=== PATIENT | male | born 1990 | race Caucasian/White ===

== ENCOUNTER 2017-05-23 23:43 | Emergency (ER) | payer MEDICARE, OTHER ==
[~2017-05-23] VITALS: Ht 180.3 cm; Wt 70.0 kg
[~2017-05-23 23:43] MED LIST: FLUO10TA PO; LEVO100T4 PO; VITA200017 PO; ZIPR20 PO
--- NOTE | 2017-05-24 00:07 | PD ---
HPI Chief Complaint: psychiatric evaluation Time Seen by Provider: 23:59 Travel History International Travel<30 days: No Contact w/Intl Traveler<30days: No History of Present Illness HPI Patient comes in under Carr act by police for allegedly threatening his roommate. Patient denies this. Patient denies any homicidal or suicidal ideations. Patient states that his roommate along with his roommates girlfriend were being loud and he was trying to sleep. Patient states he is supposed to be on medications for mood disorder but has been out of them for approximately a week. Patient is uncertain of the medications. Patient denies any medical complaints or concerns this time. Denies any chest pain, shortness of breath, fevers, abdominal pain, or headaches. PFSH Past Medical History Hx Anticoagulant Therapy: No Cardiovascular Problems: No Chemotherapy: No Cerebrovascular Accident: No Diabetes: No Diminished Hearing: No Respiratory: No Immunizations Current: No Migraines: No Social History Alcohol Use: No Tobacco Use: No Substance Use: No Allergies-Medications (Allergen,Severity, Reaction): Coded Allergies: No Known Allergies (Verified , 01/28/16) Reported Meds & Prescriptions Reported Meds & Active Scripts Active Reported Vitamin D3 (Cholecalciferol) 2,000 Unit Tab 32,000 Unit PO DAILY Fluoxetine (Fluoxetine HCl) 10 Mg Tab 10 Mg PO DAILY Levothyroxine 100 mcg (Levothyroxine Sodium) 100 Mcg Tab Unknown Dose PO DAILY Geodon (Ziprasidone) 20 Mg Cap 20 Mg PO DAILY Review of Systems Except as stated in HPI: all other systems reviewed are Neg Physical Exam Narrative GENERAL: Well-developed, well nourished, in no acute distress, and non-ill appearing. SKIN: Focused skin assessment warm and dry. HEAD: Atraumatic. Normocephalic. EYES: Pupils equal and round. EOMI. No scleral icterus. No injection or drainage. ENT: No nasal bleeding or discharge. Mucous membranes pink and moist. NECK: Trachea midline. Supple. No nuclear rigidity. CARDIOVASCULAR: Regular rate and rhythm. No murmur appreciated. RESPIRATORY: No accessory muscle use. No respiratory distress. Clear to auscultation. Breath sounds equal bilaterally. MUSCULOSKELETAL: No obvious deformities. No clubbing. No cyanosis. No edema. Full range of motion. NEUROLOGICAL: Awake and alert. No obvious cranial nerve deficits. Motor grossly within normal limits. Normal speech. PSYCHIATRIC: Appropriate mood and affect; insight and judgment normal. Data Data Orders Orders Complete Blood Count With Diff (05/24/17 00:00) Comprehensive Metabolic Panel (05/24/17 00:00) Psych Screen (05/24/17 00:00) Drug Screen, Random Urine (05/24/17 00:00) Alcohol (Ethanol) (05/24/17 00:00) Salicylates (Aspirin) (05/24/17 00:00) Tylenol (Acetaminophen) (05/24/17 00:00) Labs Laboratory Tests Test 05/24/17 00:03 White Blood Count 8.0 TH/MM3 Red Blood Count 4.72 MIL/MM3 Hemoglobin 14.8 GM/DL Hematocrit 42.0 % Mean Corpuscular Volume 89.1 FL Mean Corpuscular Hemoglobin 31.5 PG Mean Corpuscular Hemoglobin Concent 35.3 % Red Cell Distribution Width 12.2 % Platelet Count 192 TH/MM3 Mean Platelet Volume 9.1 FL Neutrophils (%) (Auto) 45.4 % Lymphocytes (%) (Auto) 40.8 % Monocytes (%) (Auto) 12.1 % Eosinophils (%) (Auto) 1.3 % Basophils (%) (Auto) 0.4 % Neutrophils # (Auto) 3.6 TH/MM3 Lymphocytes # (Auto) 3.3 TH/MM3 Monocytes # (Auto) 1.0 TH/MM3 Eosinophils # (Auto) 0.1 TH/MM3 Basophils # (Auto) 0.0 TH/MM3 CBC Comment DIFF FINAL Differential Comment Blood Urea Nitrogen 12 MG/DL Creatinine 0.58 MG/DL Random Glucose 111 MG/DL Total Protein 7.5 GM/DL Albumin 4.2 GM/DL Calcium Level 8.7 MG/DL Alkaline Phosphatase 80 U/L Aspartate Amino Transf (AST/SGOT) 21 U/L Alanine Aminotransferase (ALT/SGPT) 24 U/L Total Bilirubin 0.2 MG/DL Sodium Level 139 MEQ/L Potassium Level 4.0 MEQ/L Chloride Level 105 MEQ/L Carbon Dioxide Level 26.9 MEQ/L Anion Gap 7 MEQ/L Estimat Glomerular Filtration Rate 169 ML/MIN Salicylates Level LESS THAN 1.7 MG/DL Acetaminophen Level LESS THAN 2.0 MCG/ML Ethyl Alcohol Level LESS THAN 3 MG/DL MDM Medical Decision Making Medical Screen Exam Complete: Yes Emergency Medical Condition: Yes Differential Diagnosis Homicidal, suicidal, mood disorder, adjustment disorder, metabolic disturbance, substance induced mood disorder, alcohol Narrative Course Patient was seen and examined. Labs were obtained and reviewed with the exception urine drug screen has not been collected yet. Patient medically cleared for further treatment and evaluation by psych. Final disposition per psych. Diagnosis Primary Impression: Medical clearance for psychiatric admission Condition: Tulio Owen May 24, 2017 00:07
[2017-05-24 00:17] LABS: AUTOMATED NEUTROPHIL # 3.6 TH/MM3 (1.8-7.7); BASOPHIL % 0.4 % (0.0-2.0); EOSINOPHIL # 0.1 TH/MM3 (0-0.4); EOSINOPHIL % 1.3 % (0.0-4.0); HEMO FLAGS DIFF FINAL; LYMPH % 40.8 % (9.0-44.0); LYMPHOCYTE # 3.3 TH/MM3 (1.0-4.8); MEAN CELL VOLUME 89.1 FL (80.0-100.0); MEAN CORPUSCULAR HEMOGLOBIN 31.5 PG (27.0-34.0); MEAN CORPUSCULAR HGB CONC 35.3 % (32.0-36.0); MONO % 12.1 % (0.0-8.0); NEUT % 45.4 % (16.0-70.0); PLATELET COUNT 192 TH/MM3 (150-450); RED BLOOD COUNT 4.72 MIL/MM3 (4.50-5.90); RED CELL DISTRIBUTION WIDTH 12.2 % (11.6-17.2)
[2017-05-24 00:32] LABS: ANION GAP 7 MEQ/L (5-15)
[2017-05-24 00:34] LABS: ACETAMINOPHEN LESS THAN 2.0 MCG/ML (10.0-30.0); ALCOHOL LESS THAN 3 MG/DL (0-5); ALKALINE PHOSPHATASE 80 U/L (45-117); ALT (GPT) 24 U/L (12-78); AST (GOT) 21 U/L (15-37); BICARBONATE 26.9 MEQ/L (21.0-32.0); BLOOD UREA NITROGEN 12 MG/DL (7-18); CHLORIDE 105 MEQ/L (98-107); GLOMERULAR FILTRATION RATE 169 ML/MIN (>89); SODIUM (NA) 139 MEQ/L (136-145); TOTAL BILIRUBIN ADULT 0.2 MG/DL (0.2-1.0)
[2017-05-24 02:20] VITALS: BP 121/56; PULSE 57; RESP 16; TEMP 98.3; O2SAT 100
[2017-05-24 06:15] VITALS: BP_SYST 131; BP_SYST 147; BP_DIAS 60; BP_DIAS 85; PULSE 62; PULSE 80; RESP 16; TEMP 97.3; TEMP 97.8; O2SAT 99
--- NOTE | 2017-05-24 09:53 | MB ---
cc: JAKE WOO DATE OF CONSULTATION: 05/24/2017 PHYSICIAN REQUESTING CONSULTATION: Emergency department physician. REASON FOR CONSULTATION: Carr ACT HISTORY OF PRESENT ILLNESS Mr. Short is a 26-year-old male with a chart history of attention deficit hyperactivity disorder as well as oppositional defiant disorder and mild mental retardation who presents under a Carr ACT by [place] [employer] alleging that the patient was making homicidal threats towards a roommate. Reviewing the electronic medical record, I note the patient was admitted most recently to the child psychiatric unit in [address] Castañeda [facility]. The patient seen and examined. Chart reviewed. Case discussed with nursing staff. There has been no evidence of any behavioral disturbance while the patient has been under observation in the J pod. There has been no evidence of suicidality or homicidality. I noted the emergency department provider's reported that the patient denied the allegations in the Carr ACT. He continues to deny them to me now. He says that he got into an argument with his roommate because roommate and roommate's girlfriend were being too loud and the roommate called the police in retribution and made up the allegations in the Carr ACT. The patient adamantly denies any suicidal or homicidal ideation, intent or plan on direct questioning and contracts for safety. In particular he denies any desired to kill or injure his roommate or roommates girlfriend. He understands that the sort of conduct would be illegal and immoral and result in legal sanction. He denies any issues with mood and I can elicit no depressive or hypomanic / manic symptoms. He denies any audiovisual hallucinations and I can elicit no delusional beliefs. No reported anxiety. The remainder of the psychiatric ROS is negative. The patient is calm and pleasant on exam. He has no physical complaints. PAST PSYCHIATRIC HISTORY The patient denies a history of psychiatric diagnosis but follows with Dr. Salazar. He does say that Dr. Salazar prescribes the medications and admits that he has been out of them for about the last week or so. He denies any history of psychiatric admissions in adulthood. He denies any history of suicide attempts. He denies any history of violent behavior. FAMILY HISTORY The patient denies family history of mental illness. CHEMICAL DEPENDENCY HISTORY: The patient denies any abuse of drugs or alcohol. SOCIAL HISTORY The patient reports that he lives and supported living. He is high school educated and was in special education classes. He notes that he is looking for work. He denies any history. Denies any legal history. Denies any he is in a long-term relationship but has no children. He denies any access to guns or firearms. PAST MEDICAL HISTORY See electronic medical record. REVIEW OF SYSTEMS Accept as noted in HPI, this is negative. PHYSICAL EXAMINATION VITAL SIGNS: Temperature 97.3, pulse 62, respirations 16, blood pressure 131/60, pulse oximetry 99% on room air. The physical examination was completed by the Emergency department provider. On my examination today, the patient appears to be in no acute physical distress. No motor abnormalities noted. LABORATORY Reviewed: CBC is unremarkable. CMP is unremarkable. Toxicology is negative. Alcohol level undetectable. Urinalysis results reviewed. MENTAL STATUS EXAM The patient is in hospital gown. He is fairly well per he is well-groomed. He is awake and alert and oriented x3. No abnormal motor movements noted. Speech is within normal limits for rate, tone and volume. Language and fund of knowledge seem reduced for age. Mood is fair and affect is full and reactive that the little bit childlike. Thought process linear. No loosening of associations. No delusional material elicited. Denies audiovisual hallucinations. Denies suicidal or homicidal ideation, intent or plan on direct questioning. Contracts for safety. Insight and judgment are perhaps fair. ASSESSMENT/PLAN 1. Intellectual disability, F 79 This is a 26-year-old male with psychiatric history as detailed above who presents under a Carr ACT. The patient has been calm and cooperative in the emergency department with no evidence of any sort of violence or behavioral disturbance. He denies the allegations in the Carr ACT. Nursing staff has endeavored to obtain collateral from the patient's payee as well as from other sources but has been unable to obtain any further information. Based on my evaluation, the only active psychiatric diagnosis for this patient that I can ascertain is intellectual disability. Since intellectual disability is specifically excluded from the Carr ACT definition of mental illness, the patient does not meet the Carr ACT criteria. Carr ACT therefore lifted. The patient is denying suicidal or homicidal ideation. He appears to be attending to his basic needs. Since he does have some degree of intellectual disability. We will need to ensure that a safe discharge plan is in place before he leaves the emergency department. I have therefore consulted the immigration case worker to arrange for this. The patient is also to follow up with psychiatric patient psychiatric providers. I have counseled the patient regarding warning signs for need to return to the psychiatric emergency room as part of a general safety plan. Thank you very much for this consultation. Jake Bullock /8:11 AM /9:49 AM KIRIT
--- NOTE | 2017-05-24 12:56 | PD ---
Physical Exam Date Seen by Provider: May 24, 2017 Time Seen by Provider: 12:56 Narrative 26-year-old male patient cleared from our facility medically and psychiatrically. I was asked to disposition the patient. Data Data Last Documented VS Vital Signs Date Time Temp Pulse Resp B/P (MAP) Pulse Ox O2 Delivery O2 Flow Rate FiO2 05/24/17 06:15 97.3 62 16 131/60 (83) 99 Room Air Orders Orders Complete Blood Count With Diff (05/24/17 00:00) Comprehensive Metabolic Panel (05/24/17 00:00) Psych Screen (05/24/17 00:00) Drug Screen, Random Urine (05/24/17 00:00) Alcohol (Ethanol) (05/24/17 00:00) Salicylates (Aspirin) (05/24/17 00:00) Tylenol (Acetaminophen) (05/24/17 00:00) Diet Regular Basic (05/24/17 Breakfast) Case Management Consult (05/24/17 ) Ed Discharge Order (05/24/17 12:56) Labs Laboratory Tests Test 05/24/17 00:03 05/24/17 06:15 White Blood Count 8.0 TH/MM3 Red Blood Count 4.72 MIL/MM3 Hemoglobin 14.8 GM/DL Hematocrit 42.0 % Mean Corpuscular Volume 89.1 FL Mean Corpuscular Hemoglobin 31.5 PG Mean Corpuscular Hemoglobin Concent 35.3 % Red Cell Distribution Width 12.2 % Platelet Count 192 TH/MM3 Mean Platelet Volume 9.1 FL Neutrophils (%) (Auto) 45.4 % Lymphocytes (%) (Auto) 40.8 % Monocytes (%) (Auto) 12.1 % Eosinophils (%) (Auto) 1.3 % Basophils (%) (Auto) 0.4 % Neutrophils # (Auto) 3.6 TH/MM3 Lymphocytes # (Auto) 3.3 TH/MM3 Monocytes # (Auto) 1.0 TH/MM3 Eosinophils # (Auto) 0.1 TH/MM3 Basophils # (Auto) 0.0 TH/MM3 CBC Comment DIFF FINAL Differential Comment Blood Urea Nitrogen 12 MG/DL Creatinine 0.58 MG/DL Random Glucose 111 MG/DL Total Protein 7.5 GM/DL Albumin 4.2 GM/DL Calcium Level 8.7 MG/DL Alkaline Phosphatase 80 U/L Aspartate Amino Transf (AST/SGOT) 21 U/L Alanine Aminotransferase (ALT/SGPT) 24 U/L Total Bilirubin 0.2 MG/DL Sodium Level 139 MEQ/L Potassium Level 4.0 MEQ/L Chloride Level 105 MEQ/L Carbon Dioxide Level 26.9 MEQ/L Anion Gap 7 MEQ/L Estimat Glomerular Filtration Rate 169 ML/MIN Salicylates Level LESS THAN 1.7 MG/DL Acetaminophen Level LESS THAN 2.0 MCG/ML Ethyl Alcohol Level LESS THAN 3 MG/DL Urine Opiates Screen NEG Urine Barbiturates Screen NEG Urine Amphetamines Screen NEG Urine Benzodiazepines Screen NEG Urine Cocaine Screen NEG Urine Cannabinoids Screen NEG MDM Supervised Visit with JOSE ALBERTO: Yes Differential Diagnosis Depression versus suicidal ideation versus anxiety versus adjustment disorder versus mood disorder versus bipolar disorder versus schizophrenia versus paranoid disorder versus psychosis versus substance abuse versus alcohol abuse versus alcohol induced psychosis versus homicidality addition versus cutting versus personality disorder Narrative Course 26-year-old male patient cleared from our facility medically and psychiatrically. I was asked to disposition the patient. The patient denies any homicidal or suicidal ideations at this time. The patient denies any physiological complaint. The patient will be discharged home. Diagnosis Primary Impression: Medical clearance for psychiatric admission Referrals: ACT (Out patient) Patient Instructions: General Instructions, Medical Clearance for Psychiatric Care (ED) Disposition: 01 DISCHARGE HOME Condition: Stable Rita Lion May 24, 2017 12:56
== END 2017-05-24 13:18 | disposition home or self-care (01) ==
LOC: NEPD 23:43 → NEPJ 05-24 13:18
DX: F39 Unspecified mood [affective] disorder (principal); R45.850 Homicidal ideations; F79 Unspecified intellectual disabilities; F90.9 Attention-deficit hyperactivity disorder, unspecified type; F91.3 Oppositional defiant disorder; Z79.899 Other long term (current) drug therapy
CPT/HCPCS: 80053; 80307; 85025; 99284

== ENCOUNTER 2017-11-04 20:10 | Emergency (ER) | payer MEDICARE, OTHER ==
[2017-11-04] MEDS: cefTRIAXone 250 MG VIAL IM (23:00)
[2017-11-04] MEDS: AZITHROMYCIN PWD FOR SUSP 1 GM PACKET PO (23:00)
== END 2017-11-05 00:04 | disposition home or self-care (01) ==
LOC: NEPD 11-05 00:04
DX: R35.0 Frequency of micturition (principal); Z20.2 Contact with and (suspected) exposure to infections with a predominantly sexual mode of transmission
CPT/HCPCS: 96372; 99283-25